=== PATIENT | female | born 1965 | race Caucasian/White ===

== ENCOUNTER → 2018-06-10 10:42 | Outpatient (CLI) | payer OTHER, SELFPAY ==
[2018-06-10 11:53] LABS: BUN Creatinine Ratio 27.1 (6-22); Blood Urea Nitrogen 19 mg/dL (7-17); Estimated Glomerular Filt Rate > 60.0 mL/min (>60)
== END ==
PROVIDERS: Visit Provider Orthopaedic Surgery Foot and Ankle Surgery
DX: M79.671 Pain in right foot (principal); R22.40 Localized swelling, mass and lump, unspecified lower limb
CPT/HCPCS: 36415; 82565; 84520

== ENCOUNTER → 2018-06-28 18:55 | Outpatient (CLI) | payer OTHER, SELFPAY ==
--- NOTE | 2018-06-28 19:02 | DI.MRI.S_ITS ---
PROCEDURE: MR FOOT LT WO/W CON INDICATIONS: MASS OF 2ND LEFT TOE TECHNIQUE: Noncontrast long-axis T1 spin echo and T2 fast spin echo with fat saturation, short-axis T1 spin echo with and without fat saturation, and short-axis T2 fast spin echo with fat saturation. After the administration of contrast, short-axis T1 spin echo with fat saturation through the forefoot. COMPARISON: [facility] [place], CR, XR FOOT 3 VIEWS WEIGHT BEARING RIGHT, 06/10/2018, 9:05. FINDINGS: Image quality: Axial sequences are slightly degraded secondary to patient motion. Bones and joints: Chronic appearing deformity involving distal shaft of first metatarsal bone is seen, likely represent old healed fracture versus prior surgery. Mild hallux valgus is seen. Osteoarthritic changes are noted in the first MTP joint. No gross bony erosive changes. No marrow edema. No acute fracture or dislocation. Intraosseous cyst formation in medial aspect of first metatarsal head are seen.. The sesamoid bones appear in expected positions, without internal edema. No suspicious intraosseous lesions. Soft tissues: No enhancing lesions between the metatarsal heads to suggest Mckeon's neuromas. No rim-enhancing intermetatarsal bursal fluid collections are present. The visualized plantar foot muscles demonstrate normal signal and bulk. Visualized flexor and extensor tendons appear intact, without tenosynovitis. IMPRESSION: 1. No gross enhancing soft tissue mass to suggest Mckeon's neuroma. No area of abnormal contrast enhancement. 2. Mild hallux valgus. Possible postsurgical changes versus old healed fracture involving distal shaft of first metatarsal bone. 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 No gross bony erosive changes. Dictated by: Estuardo Diane M.D. on 06/29/2018 at 13:05 Approved by: Estuardo Diane M.D. on 06/29/2018 at 13:11
== END ==
PROVIDERS: Visit Provider Orthopaedic Surgery Foot and Ankle Surgery
DX: M19.072 Primary osteoarthritis, left ankle and foot (principal); R22.42 Localized swelling, mass and lump, left lower limb; M20.12 Hallux valgus (acquired), left foot
CPT/HCPCS: 73720; A9579

== ENCOUNTER → 2019-05-05 17:47 | Outpatient (CLI) | payer OTHER, MEDICAID, SELFPAY ==
[2019-05-05 18:37] LABS: Erythrocyte Sedimentation Rate 36 MM/HR (0-20)
[2019-05-05 19:55] LABS: Rheumatoid Factor 19.4 IU/mL (<12.0)
[2019-05-05 19:56] LABS: C-Reactive Protein Quant 0.9 mg/dL (<1.0)
== END ==
PROVIDERS: Visit Provider Internal Medicine
DX: G89.4 Chronic pain syndrome (principal)
CPT/HCPCS: 36415; 85651; 86038; 86140; 86430